=== PATIENT | male | born 1960 | race Caucasian/White ===

== ENCOUNTER 2017-02-10 18:34 | Emergency (ER) | payer BC ==
--- NOTE | 2017-02-10 18:52 | EDM.PDOC ---
ED HPI GENERAL MEDICAL PROBLEM - General Stated Complaint: BLEED, COMING BY AMBULANCE Time Seen by Provider: 02/10/17 18:47 Source of Information: Reports: Patient, EMS, Family History Limitations: Reports: No Limitations - History of Present Illness INITIAL COMMENTS - FREE TEXT/NARRATIVE: started bleeding 2 days ago worse today with both upper & lower. EMS state Pt vomiting blood en route. - Related Data Allergies Allergy/AdvReac Type Severity Reaction Status Date / Time amoxicillin Allergy Unknown Itching Verified 12/11/14 10:49 ampicillin Allergy Unknown Hives Verified 12/11/14 10:49 Home Meds: Home Meds . [No Known Home Meds] 02/10/17 [History] Past Medical History Cardiovascular History: Reports: Hypertension - Past Surgical History Musculoskeletal Surgical History: Reports: Arthroscopic Procedure Social & Family History - Tobacco Use Smoking Status *Q: Former Smoker Years of Tobacco use: 2 Packs/Tins Daily: 198 Second Hand Smoke Exposure: No - Alcohol Use Days Per Week of Alcohol Use: 7 Number of Drinks Per Day: 2 Total Drinks Per Week: 14 - Recreational Drug Use Recreational Drug Use: No ED ROS GENERAL - Review of Systems Review Of Systems: ROS reveals no pertinent complaints other than HPI. ED EXAM, GI/ABD - Physical Exam Exam: See Below Exam Limited By: No Limitations General Appearance: Alert, WD/WN, Anxious, Mild Distress, Other (distraught) Ears: Hearing Grossly Normal Throat/Mouth: Normal Voice, No Airway Compromise Head: Atraumatic Neck: Non-Tender, Full Range of Motion Respiratory/Chest: No Respiratory Distress Cardiovascular: Regular Rate, Rhythm GI/Abdominal: Soft, Non-Tender Rectal (Males) Exam: Bloody Stool Neurological: Alert, Oriented, Normal Cognition, No Motor/Sensory Deficits Psychiatric: Flat Affect Skin Exam: Jaundice Lymphatic: No Adenopathy Course - Orders/Labs/Meds Orders: Active Orders 24 hr Category Date Time Status COMPREHENSIVE METABOLIC PN,CMP [CHEM] Stat Lab 02/10/17 18:47 Ordered RED BLOOD CELLS LP [BBK] Routine Lab 02/10/17 18:52 Received TYPE AND SCREEN [BBK] Routine Lab 02/10/17 18:52 Received Octreotide [SandoSTATIN] Med 02/10/17 19:13 Once 50 mcg IVPUSH ONETIME ONE Transfuse RBC [Transfuse Red Blood Cells] [COMM] Stat Oth 02/10/17 18:47 Ordered Labs: Laboratory Tests 02/10/17 Range/Units 18:52 WBC 18.6 H (5.0-10.0) 10^3/uL RBC 2.00 L (4.6-6.2) 10^6/uL Hgb 7.1 L (14.0-18.0) g/dL Hct 20.1 L* (40.0-54.0) % MCV 100.5 H (80-100) fL MCH 35.5 H (27.0-34.0) pg MCHC 35.3 H (33.0-35.0) g/dL Plt Count 210 (150-450) 10^3/uL Neut % (Auto) 76.2 H (42.2-75.2) % Lymph % (Auto) 9.4 L (20.5-50.1) % Stanley % (Auto) 14.0 H (2-8) % Eos % (Auto) 0.3 L (1.0-3.0) % Baso % (Auto) 0.1 (0.0-1.0) % - Re-Assessments/Exams Free Text/Narrative Re-Assessment/Exam: 02/10/17 19:[address] Wilkins @ [facility] who kindly accepted Pt. Departure - Departure Time of Disposition: 19:14 Disposition: DC/Tfer to Acute Hospital 02 Condition: poor Clinical Impression: Upper GI bleeding, Lower GI bleed Hypotension Qualifiers: Hypotension type: other hypotension type Qualified Code(s): I95.89 - Other hypotension - Discharge Information Forms: Interfacility Transfer EMTALA - My Orders Last 24 Hours: My Active Orders 02/10/17 18:47 COMPREHENSIVE METABOLIC PN,CMP [CHEM] Stat Transfuse RBC [Transfuse Red Blood Cells] [COMM] Stat 02/10/17 18:52 RED BLOOD CELLS LP [BBK] Routine TYPE AND SCREEN [BBK] Routine 02/10/17 19:13 Octreotide [SandoSTATIN] 50 mcg IVPUSH ONETIME ONE - Assessment/Plan Last 24 Hours: My Active Orders 02/10/17 18:47 COMPREHENSIVE METABOLIC PN,CMP [CHEM] Stat Transfuse RBC [Transfuse Red Blood Cells] [COMM] Stat 02/10/17 18:52 RED BLOOD CELLS LP [BBK] Routine TYPE AND SCREEN [BBK] Routine 02/10/17 19:13 Octreotide [SandoSTATIN] 50 mcg IVPUSH ONETIME ONE
[2017-02-10] MEDS ORDERED: Octreotide 100 MCG/ML SDV IVPUSH ONE (19:13)
[2017-02-10 19:44] VITALS: BP 76/46
== END 2017-02-10 20:45 ==
LOC: DL.ED 18:34
DX: K92.2 Gastrointestinal hemorrhage, unspecified (principal); I10 Essential (primary) hypertension; I95.89 Other hypotension; Z88.1 Allergy status to other antibiotic agents; Z87.891 Personal history of nicotine dependence
CPT/HCPCS: 36415; 36430; 85025; 86850; 86900; 86901; 86920; 86922; 96360; 96361; 96365; 96374; 99291; J2354; P9016